=== PATIENT | female | born 1975 | race Caucasian/White ===

== ENCOUNTER 2020-04-13 23:30 | Emergency (ER) | payer OTHER, MEDICAID ==
[~2020-04-13] VITALS: Ht 165.1 cm; Wt 59.0 kg
[2020-04-14 04:44] VITALS: BP 107/79
== END 2020-04-14 04:45 | disposition left against medical advice (07) ==
LOC: M.ERS 23:30
DX: S90.122A Contusion of left lesser toe(s) without damage to nail, initial encounter (principal); S90.812A Abrasion, left foot, initial encounter; S90.811A Abrasion, right foot, initial encounter; F17.210 Nicotine dependence, cigarettes, uncomplicated; Y08.89XA Assault by other specified means, initial encounter; Y93.89 Activity, other specified; Y92.89 Other specified places as the place of occurrence of the external cause; Y99.8 Other external cause status